=== PATIENT | female | born 1990 | race Hispanic/Latino ===

== ENCOUNTER 2021-09-04 17:39 | Emergency (ER) | payer OTHER, SELFPAY ==
[2021-09-04 18:13] LABS: Urine Blood Trace-intact (Negative); Urine Glucose Negative (Negative); Urine Protein Negative (Negative); Urine Specific Gravity >=1.030 (1.005-1.030)
[2021-09-04 19:13] LABS: Urine Specific Gravity/Preg >1.030 (1.005-1.030)
--- NOTE | 2021-09-04 21:24 | EDPHYS ---
Physician Documentation [facility] Name: Cass Barros Age: 31 yrs Sex: Female : 1990 Arrival Date: 09/04/2021 Time: 17:44 Bed 16 Private MD: ED Physician Kris Mueller HPI: 09/04 20:36 This 31 yrs old Female presents to ER via Ambulatory with complaints of kdr Painful Breathing. 20:36 The patient or guardian reports chest pain that is located primarily in the anterior kdr chest wall, left. The pain does not radiate. Associated signs and symptoms: The patient has no apparent associated signs or symptoms. The chest pain is described as sharp. Duration: The patient or guardian reports a single episode, that is still ongoing. Modifying factors: The symptoms are alleviated by remaining still, Shallow breathing. Severity of pain: At its worst the pain was mild moderate just prior to arrival, in the emergency department the pain is unchanged. The patient has not experienced similar symptoms in the past. The patient has not recently seen a physician. Patient is but she does not know how far along she is. She has not had any care. Historical: - Allergies: 17:56 No Known Allergies; ab2 - Home Meds: 17:56 Vitamin Oral [Active]; ab2 - PMHx: 17:56 None; ab2 - PSHx: 17:56 None; ab2 - Immunization history:: Adult Immunizations up to date. - Social history:: Smoking status: Patient denies any tobacco usage or history of. ROS: 20:36 Constitutional: Negative for fever, chills, and weight loss, Eyes: Negative for injury, kdr pain, redness, and discharge, Neck: Negative for injury, pain, and swelling, Cardiovascular: Negative for chest pain, palpitations, and edema, Respiratory: Negative for shortness of breath, cough, wheezing, and pleuritic chest pain, Abdomen/GI: Negative for abdominal pain, nausea, vomiting, diarrhea, and constipation, Back: Negative for injury and pain, : Negative for injury, bleeding, discharge, and swelling, MS/Extremity: Negative for injury and deformity, Skin: Negative for injury, rash, and discoloration, Neuro: Negative for headache, weakness, numbness, tingling, and seizure activity. Psych: Negative for depression, anxiety, suicide ideation, homicidal ideation, and hallucinations, Allergy/Immunology: Negative for hives, rash, and allergies, Endocrine: Negative for neck swelling, polydipsia, polyuria, polyphagia, and marked weight changes, Hematologic/Lymphatic: Negative for swollen nodes, abnormal bleeding, and unusual bruising. Exam: 20:36 Constitutional: This is a well developed, well nourished patient who is awake, alert, kdr and in no acute distress. Head/Face: Normocephalic, atraumatic. Eyes: Pupils equal round and reactive to light, extra-ocular motions intact. Lids and lashes normal. Conjunctiva and sclera are non-icteric and not injected. Cornea within normal limits. Periorbital areas with no swelling, redness, or edema. Neck: Trachea midline, no thyromegaly or masses palpated, and no cervical lymphadenopathy. Supple, full range of motion without nuchal rigidity, or vertebral point tenderness. No Meningismus. Cardiovascular: Regular rate and rhythm with a normal S1 and S2. No gallops, murmurs, or rubs. Normal PMI, no JVD. No pulse deficits. Respiratory: Lungs have equal breath sounds bilaterally, clear to auscultation and percussion. No rales, rhonchi or wheezes noted. No increased work of breathing, no retractions or nasal flaring. Abdomen/GI: Soft, non-tender, with normal bowel sounds. No distension or tympany. No guarding or rebound. No evidence of tenderness throughout. Back: No spinal tenderness. No costovertebral tenderness. Full range of motion. Skin: Warm, dry with normal turgor. Normal color with no rashes, no lesions, and no evidence of cellulitis. MS/ Extremity: Pulses equal, no cyanosis. Neurovascular intact. Full, normal range of motion. Neuro: Awake and alert, GCS 15, oriented to person, place, time, and situation. Cranial nerves II-XII grossly intact. Motor strength 5/5 in all extremities. Sensory grossly intact. Cerebellar exam normal. Normal gait. Psych: Awake, alert, with orientation to person, place and time. Behavior, mood, and affect are within normal limits. 20:36 Chest/axilla: Inspection: normal, Palpation: tenderness, that is mild, of the anterior aspect of left upper chest and left breast. Vital Signs: 17:54 BP 130 / 84; Pulse 75; Resp 20; Temp 98.8; Pulse Ox 98% on R/A; Weight 88.45 kg; Height ab2 5 ft. 3 in. (160.02 cm); Pain 9/10; 21:30 BP 122 / 75 LA Sitting (auto/reg); Pulse 72 MON; Resp 18 S; Temp 98(O); Pulse Ox 99% ; tk1 Pain 7/10; 17:54 Body Mass Index 34.54 (88.45 kg, 160.02 cm) ab2 MDM: 20:36 Data reviewed: vital signs, nurses notes, lab test result(s). Counseling: I had a kdr detailed discussion with the patient and/or guardian regarding: the historical points, exam findings, and any diagnostic results supporting the discharge/admit diagnosis, radiology results, the need for outpatient follow up. 21:23 Patient medically screened. kdr 09/04 18:13 Order name: Urine Dipstick-Ancillary; Complete Time: 20:32 EDMS 09/04 18:13 Order name: Urine Dipstick-Ancillary (obtain specimen); Complete Time: 18:14 ab2 09/04 18:13 Order name: Urine Test (obtain specimen); Complete Time: 18:14 ab2 09/04 18:19 Order name: Urine --Ancillary (enter results); Complete Time: 20:32 bd Administered Medications: 20:29 Drug: Tylenol 1000 mg Route: PO; tk1 21:23 Follow up: Response: Pain is unchanged, physician notified tk1 21:23 Drug: Tylenol #3 (300 mg-30 mg) 1 tablet Route: PO; tk1 21:24 Follow up: Response: Medication administered at discharge. tk1 Disposition Summary: 09/04/21 21:23 Discharge Ordered Location: Home kdr Problem: new kdr Symptoms: have improved kdr Condition: Stable kdr Diagnosis - Chest pain on breathing kdr Followup: kdr - With: Private Physician - When: 2 - 3 days - Reason: If symptoms return, Further diagnostic work-up, Recheck today's complaints, Continuance of care, Re-evaluation by your physician Discharge Instructions: - Discharge Summary Sheet kdr - Chest Wall Pain kdr - Costochondritis, [id number] kdr - Nonspecific Chest Pain, Adult, [id number] kdr Forms: - Medication Reconciliation Form kdr - Thank You Letter kdr - Prescription Opioid Use kdr Prescriptions: - Tylenol-Codeine #3 300 mg-30 mg Oral - take 1 tablet by ORAL route every 4-6 hours As needed; 12 tablet; Refills: 0, kdr Product Selection Permitted Signatures: Dispatcher [employer] EDMS Kris Mueller MD MD kdr Davion Blackwell PA PA jmm Kirby, Tammie tk1 Henok Shaver ab2 Corrections: (The following items were deleted from the chart) 19:44 18:13 IV Saline Lock ordered. ab2 tk1 19:44 18:13 Labs collected and sent ordered. ab2 tk1 19:45 18:13 Amylase ordered. EDMS EDMS 20:00 18:13 BASIC METABOLIC PANEL+C.LAB.BRZ ordered. EDMS EDMS 20:00 18:14 CBC+H.LAB.BRZ ordered. EDMS EDMS 20:49 18:14 URINALYSIS+U.LAB.BRZ ordered. EDMS EDMS 21:02 20:13 Chest Single View+RAD.RAD.BRZ ordered. EDMS EDMS
--- NOTE | 2021-09-04 21:24 | ER ---
Nurse's Notes [facility] Name: Cass Barros Age: 31 yrs Sex: Female : 1990 Arrival Date: 09/04/2021 Time: 17:44 Bed 16 Private MD: Diagnosis: Chest pain on breathing Presentation: 09/04 17:54 Chief complaint: Patient states: "I have this pain on the left side under my breast ab2 that hurts when I breathe." Pt denies any trauma or injury to affected area. Pt denies chest pain or SOB. Pt states she is but not sure how far along. Coronavirus screen: Vaccine status: Patient reports being unvaccinated. Client denies travel out of the [place] in the last 14 days. At this time, the client does not indicate any symptoms associated with coronavirus-19. Ebola Screen: Patient negative for fever greater than or equal to 101.5 degrees Fahrenheit, and additional compatible Ebola Virus Disease symptoms Patient denies exposure to infectious person. Patient denies travel to an Ebola-affected area in the 21 days before illness onset. No symptoms or risks identified at this time. Initial Sepsis Screen: Does the patient meet any 2 criteria? No. Patient's initial sepsis screen is negative. Does the patient have a suspected source of infection? No. Patient's initial sepsis screen is negative. Risk Assessment: Do you want to hurt yourself or someone else? Patient reports no desire to harm self or others. Onset of symptoms is unknown. 17:54 Method Of Arrival: Ambulatory ab2 18:15 Acuity: GINNY 3 ab2 Triage Assessment: 17:57 General: Appears in no apparent distress. comfortable, Behavior is calm, cooperative, ab2 appropriate for age. Pain: Complains of pain in left lateral anterior chest and left breast. Cardiovascular: Denies chest pain, shortness of breath. Historical: - Allergies: 17:56 No Known Allergies; ab2 - Home Meds: 17:56 Vitamin Oral [Active]; ab2 - PMHx: 17:56 None; ab2 - PSHx: 17:56 None; ab2 - Immunization history:: Adult Immunizations up to date. - Social history:: Smoking status: Patient denies any tobacco usage or history of. Screenin:57 Abuse screen: Denies threats or abuse. Denies injuries from another. Nutritional tk1 screening: No deficits noted. Tuberculosis screening: No symptoms or risk factors identified. Fall Risk None identified. Assessment: 19:57 General: Appears in no apparent distress. uncomfortable, well groomed, well developed, tk1 well nourished, Behavior is calm, cooperative, appropriate for age. Pain: Complains of pain in left diaphragm Pain does not radiate. Pain currently is 7 out of 10 on a pain scale. Quality of pain is described as aching, Pain began gradually, Is intermittent, Aggravated by with taking breaths. Neuro: Level of Consciousness is awake, alert, obeys commands, Oriented to person, place, time, situation, Appropriate for age Ur Coordinator are equal bilaterally Moves all extremities. Gait is steady, Speech is normal. Cardiovascular: Capillary refill < 3 seconds is brisk in bilateral fingers Clubbing of nail beds is absent JVD is absent. Respiratory: Airway is patent Trachea midline Respiratory effort is even, unlabored. GI: No deficits noted. No signs and/or symptoms were reported involving the gastrointestinal system. : No deficits noted. No signs and/or symptoms were reported regarding the genitourinary system. EENT: No deficits noted. No signs and/or symptoms were reported regarding the EENT system. Derm: No deficits noted. No signs and/or symptoms reported regarding the dermatologic system. Musculoskeletal: Reports pain in left side under breast. 21:30 Reassessment: D/C per MD order. Discharge/Prescription instructions given to patient. tk1 Verbalized understanding. Vital Signs: 17:54 BP 130 / 84; Pulse 75; Resp 20; Temp 98.8; Pulse Ox 98% on R/A; Weight 88.45 kg; Height ab2 5 ft. 3 in. (160.02 cm); Pain 9/10; 21:30 BP 122 / 75 LA Sitting (auto/reg); Pulse 72 MON; Resp 18 S; Temp 98(O); Pulse Ox 99% ; tk1 Pain 7/10; 17:54 Body Mass Index 34.54 (88.45 kg, 160.02 cm) ab2 ED Course: 17:44 Patient arrived in ED. ds1 17:56 Triage completed. ab2 17:58 Arm band placed on right wrist. ab2 19:17 Kris Mueller MD is Attending Physician. kdr 19:24 Syeda Ortiz is Primary Nurse. tk1 19:57 Patient has correct armband on for positive identification. sitting in chair. tk1 19:57 No provider procedures requiring assistance completed. tk1 21:30 Patient did not have IV access during this emergency room visit. tk1 Administered Medications: 20:29 Drug: Tylenol 1000 mg Route: PO; tk1 21:23 Follow up: Response: Pain is unchanged, physician notified tk1 21:23 Drug: Tylenol #3 (300 mg-30 mg) 1 tablet Route: PO; tk1 21:24 Follow up: Response: Medication administered at discharge. tk1 Outcome: :23 Discharge ordered by . kdr 21:30 Discharged to home ambulatory, with family. tk1 21:30 Condition: stable 21:30 Discharge instructions given to patient, Instructed on discharge instructions, follow up and referral plans. medication usage, Demonstrated understanding of instructions, follow-up care, medications. 21:32 Patient left the ED. tk1 Signatures: Kris Mueller MD MD [facility] Candice Perla ds1 Syeda Ortiz tk1 Henok Shaver ab2 Corrections: (The following items were deleted from the chart) 17:57 17:54 Chief complaint: Patient states: "I have this pain on the left side under my ab2 breast that hurts when I breathe." Pt denies any trauma or injury to affected area. Pt denies chest pain or SOB. ab2 18:15 17:54 Acuity: GINNY 4 ab2 ab2
[2021-09-04] MEDS ORDERED: CODEINE 30MG/APAP 300MG TAB ONE (21:25)
[2021-09-04 21:59] VITALS: BP 122/75; TEMP 98; O2SAT 99
== END 2021-09-04 21:32 | disposition home or self-care (01) ==
LOC: ER 17:39
DX: O26.899 Other specified pregnancy related conditions, unspecified trimester (principal); Z3A.00 Weeks of gestation of pregnancy not specified
CPT/HCPCS: 81003; 81025; 99283